=== PATIENT | female | born 1965 | race Caucasian/White ===

== ENCOUNTER 2025-01-11 01:00 | Observation (INO) ==
--- NOTE | 2025-01-11 01:17 | Emergency Department Note ---
History of Present Illness General Chief complaint: Abdominal Pain Stated complaint: ABD PAIN IN R SIDE, VOMITING Time Seen by Provider: 01/11/25 01:04 History of Present Illness Maximum Pain Intensity: 4 This 59-year-old female presents ER complaining of nausea vomiting diarrhea and right lower quadrant pain. Patient is concerned about her appendix. She is also on well water. No recent antibiotics. Patient states she had 2 hotdogs a chili sauce for dinner. Other family members have the same thing and are fine. Patient denies chest pain, dyspnea, fevers, flank pain, urinary symptoms. No abdominal surgeries. No colonoscopy. No blood or black in the stool. Past Med/Surg History Problem List (Updated 01/11/25 @ 02:44 by Lesly Mcnulty PA-C) Ureterolithiasis (Acute) Renal colic on right side (Acute) Social History Smoking Status: Never smoker Preferred Language: Citizen Of The [place] Feels Safe at Home: Yes Review of Systems A total of 10 systems reviewed and were otherwise negative Physical Exam Vital Signs Vital Signs - 24 hr 01/11/25 01:06 01/11/25 01:19 01/11/25 01:28 Temperature 36.5 C Temperature Source Temporal Artery Scan Pulse Rate 87 69 Pulse Rate [Apical] 77 Pulse Rhythm [Apical] Regular Pulse Strength [Apical] Normal Respiratory Rate 18 20 Respiratory Effort / Characteristics Non-Labored Spontaneous Non-Labored Spontaneous Respiratory Depth Normal Normal Respiratory Pattern Regular Regular Blood Pressure 139/69 Blood Pressure [Right Arm] 136/82 Blood Pressure Mean 92 Blood Pressure Mean [Right Arm] 100 Blood Pressure Position Sitting Pulse Oximetry 99 98 Oxygen Delivery Method Room Air Room Air Sepsis Recent Fever Within 48 Hours No Sepsis New/Unexplained Change in Mental Status N/A Sepsis Action Taken by Nursing No Action Required VITALS: Vitals are noted on the nurse's note and reviewed by myself. Vital signs stable. GENERAL: Pleasant patient with family present, in no acute distress, nondiaphoretic, well-developed well-nourished. SKIN: Capillary reflex less than 2 seconds. HEENT: Normocephalic. PERRLA. EOMI. Nares patent. Mucous membranes moist. Neck is supple without nuchal rigidity. HEART: Regular rate and rhythm LUNGS: Clear to auscultation bilaterally without wheezes, rales or rhonchi. No retractions or accessory muscle use. ABDOMEN: Positive bowel sounds x 4. Normal tympanic percussion. Soft, tender to palpation lower abdomen, without masses or organomegaly. Menjivar sign negative. No guarding or rebound tenderness. no CVA tenderness MUSCULOSKELETAL: No gross musculoskeletal defects. NEURO: Patient was alert and oriented to person place and time. No focal neurological deficits. Course Administered Medications Discontinued Medications Dicyclomine HCl (Dicyclomine Hcl 10 Mg/Ml 2 Ml Amp/Vial) 20 mg IM NOW ONE Stop: 01/11/25 01:15 Last Admin: 01/11/25 01:22 Dose: 20 mg Documented By: SHARIFA Sodium Chloride (Nss) 1,000 mls @ 999 mls/hr IV .Q1H1M STA Stop: 01/11/25 02:14 Last Admin: 01/11/25 01:22 Dose: 999 mls/hr Documented By: SHARIFA Famotidine (Pepcid 20mg Iv Push) 20 mg in 5 mls @ 2.5 mls/min IV NOW STA Stop: 01/11/25 01:15 Last Admin: 01/11/25 01:22 Dose: 2.5 mls/min Documented By: SHARIFA Ioversol (Optiray 320 100ml) 94 ml IV ONCE ONE Stop: 01/11/25 01:40 Last Admin: 01/11/25 01:44 Dose: 94 ml Documented By: AISHA Ondansetron HCl (Ondansetron Inj 2 Mg/Ml 2 Ml Vial) 4 mg IV NOW STA Stop: 01/11/25 01:15 Last Admin: 01/11/25 01:22 Dose: 4 mg Documented By: SHARIFA Medical Decision Making Medical Records Attestation: I reviewed the patient's medical records. Home Medications Current Medication List: was personally reviewed by me Laboratory Data Attestation: I reviewed the patient's lab results. 01/11/25 01:14 01/11/25 01:14 Lab Results 01/11/25 01/11/25 01/11/25 Range/Units 01:14 01:19 02:00 WBC 18.92 H (4.8-10.8) K/ul RBC 4.73 (4.20-5.40) M/uL Hgb 14.2 (12.0-16.0) g/dl POC Hgb 14.3 (12.0-16.0) g/dl Hct 41.4 (37.0-47.0) % POC Hct 42 (37-47) % MCV 87.5 (80.0-100.0) fL MCH 30.0 (25.0-34.0) pg MCHC 34.3 (32.0-36.0) g/dL RDW Std Deviation 38.5 (36.4-46.3) fL RDW Coeff of Ilya 12.0 (11.5-14.5) % Plt Count 308 (130-400) K/uL MPV 9.5 (9.4-12.4) fL Immature Gran % (Auto) 0.5 % Neut % (Auto) 87.4 % Lymph % (Auto) 7.7 % [place] % (Auto) 3.4 % Eos % (Auto) 0.6 % Baso % (Auto) 0.4 % Neut # (Auto) 16.54 H (1.40-6.50) K/uL Lymph # (Auto) 1.46 (1.20-3.40) K/uL [place] # (Auto) 0.65 H (0.11-0.59) K/uL Eos # (Auto) 0.11 (0.00-0.50) K/uL Baso # (Auto) 0.07 (0.00-0.20) K/uL Immature Gran # (Auto) 0.09 (0.01-0.20) K/uL POC Sodium 141 (135-144) mmol/L Sodium 139 (136-145) mmol/L POC Potassium 3.6 (3.3-5.0) mmol/L Potassium 3.6 (3.5-5.1) mmol/L POC Chloride 110 (101-112) mmol/L Chloride 108 H (98-107) mmol/L Carbon Dioxide 24 (21-32) mmol/L POC Total CO2 22 L (24-31) mmol/L Anion Gap 7 (3-11) POC Anion Gap 13.0 L (16-25) mmol/L POC BUN 22 H (7-18) mg/dl BUN 22 (6-23) mg/dl Creatinine 0.86 (0.6-1.2) mg/dl POC Creatinine 0.9 (0.6-1.3) mg/dl Est Cr Clr Drug Dosing 57.1 ml/min eGFR 78.75 BUN/Creatinine Ratio 25.6 H (10-20) Glucose 176 H (70-99(Fasting)) mg/dl POC Glucose (other) 177 H (70-99) mg/dl Calcium 9.6 (8.6-10.3) mg/dl POC Ioniz Calcium Darian 1.23 (1.12-1.32) mmol/l Total Bilirubin 0.4 (0.2-1.0) mg/dl AST 20 (13-39) U/L ALT 15 (7-52) U/L Alkaline Phosphatase 73 (34-104) U/L Total Protein 7.5 (6.0-8.3) gm/dl Albumin 4.6 (3.4-5.0) gm/dl Globulin 2.9 (2.5-4.0) gm/dl Albumin/Globulin Ratio 1.6 (0.9-2) Lipase 38 (11-82) U/L Urine Color Yellow Urine Appearance Clear (Clear) Urine pH 7.0 (4.5-7.5) Ur Specific [place] 1.040 H (1.000-1.030) Urine Protein Negative (Negative) Urine Glucose (UA) Negative (Negative) Urine Ketones Trace H (Negative) Urine Blood Negative (Negative) Urine Nitrite Negative (Negative) Urine Bilirubin Negative (Negative) Urine Urobilinogen Negative (Negative) Ur Leukocyte Esterase Trace H (Negative) Urine WBC (Auto) 0-5 (0-5) /hpf Urine RBC (Auto) 0-2 (0-2) /hpf U Hyaline Cast (Auto) 0-2 (0-2) /lpf U Epithel Cells (Auto) 0-2 (0-2) /hpf Urine Bacteria (Auto) None Seen (None Seen) Urine Comment Imaging Data Attestation: I personally reviewed and interpreted this imaging study as follows: Radiologist's Impression: Abdomen/Pelvis CT 01/11/25 01:14 EXAM: CT abd pelvis IV con only CLINICAL HISTORY: severe RLQ pain TECHNIQUE: Contiguous axial images were obtained from the level of the diaphragm to the pubic symphysis with intravenous contrast. Coronal and sagittal reconstructions were also performed and indicated to increase the sensitivity for detecting clinically relevant pathology. If IV contrast material had not been administered, the likelihood of detecting abnormalities relevant to the patient's condition would have been substantially decreased. The CT scan was performed according to ALARA (as low as reasonably achievable). COMPARISON: None FINDINGS: The visualized lung bases are clear. The liver is normal in size and attenuation. No focal liver lesions are seen. There is no intrahepatic or extrahepatic biliary ductal dilatation. The hepatic vasculature is patent. The gallbladder is present. The spleen, pancreas, and adrenal glands are unremarkable. The kidneys are normal in size and attenuation. The right kidney shows hydronephrosis and hydroureter up to an obstructing calculus measuring 10 mm at the right vesicoureteric junction. The right kidney shows a nonobstructing calculus measuring 3 mm in the lower calyx. Mild stricturous inflammatory wall thickening is noted involving the right proximal ureter, just distal to the pelviureteric junction, with mild adjacent fat stranding. The bladder is normal in contour. The pelvic viscera are unremarkable. No focal or diffuse bowel wall thickening or evidence of bowel obstruction is identified. There is no imaging evidence of appendicitis. The abdominal and pelvic vasculature is patent. No adenopathy or fluid collections are seen. No aggressive-appearing osseous lesions are identified. IMPRESSION: The right kidney shows hydronephrosis and hydroureter up to an obstructing calculus measuring 10 mm at the right vesicoureteric junction. The right kidney shows a nonobstructing calculus measuring 3 mm in the lower calyx. Mild stricturous inflammatory wall thickening is noted involving the right proximal ureter, just distal to the pelviureteric junction, with mild adjacent fat stranding. Electronically signed by Mega Nielsen 01-11-2025 02:35 AM MDM Narrative Prior records/ancillary studies reviewed. Triage Nursing notes reviewed. Additional history obtained from the family. The patient's history was concerning for nausea, vomiting, diarrhea, and abdominal pain. Differential diagnosis: Etiologies such as gastroenteritis, food borne illness, infections, appendicitis, diverticulitis, inflammatory bowel disease, obstruction, GI bleed, biliary pathology, as well as others were entertained. Physical examination findings: As above. Abdominal examination revealed tender right lower quadrant. Vital signs reviewed and revealed stable. ER treatment provided: IV hydration 1 L NSS. Zofran, Pepcid and Bentyl were ordered Flomax was ordered for large kidney stone On reassessment the patient felt better. Patient was tolerating p.o. intake. Diagnostics interpretation by me: The labs Independently Interpreted by myself revealed leukocytosis, hyperglycemia that DKA. Negative urine for infection Imaging studies: Imaging was reviewed and read by radiology Consultation: A consultation was placed with the hospitalist. The case was discussed and diagnostics were reviewed. The patient was evaluated in the ER for further treatment. This appears to be consistent with right renal colic with ureterolithiasis. Patient stone was rather large most likely will not pass on its own. Medicine was consulted and the case was discussed. She will be evaluated for admission. No UTI. No history of diabetes. A1c was ordered as the glucose was elevated. No DKA.. By the evaluation outlined above emergent etiologies such as appendicitis, diverticulitis, obstruction, cardiac sources, mesenteric ischemia, aortic pathology, inflammatory bowel disease, PUD, biliary pathology, UTI, as well as others were deemed relatively unlikely. The pt informed about the findings as listed above. All questions were answered and pleased with the treatment. The chart was completed utilizing [employer] Speech voice recognition software. Grammatical errors, random word insertions, pronoun errors, and incomplete sentences are an occassional consequence of this system due to software limitations, ambient noise, and hardware issues. Any formal questions or concerns about the content, text, or information contained within the body of this dictation should be directly addressed to the physician assistant public defender for clarification. Impression & Plan Renal colic on right side, Ureterolithiasis Discharge Plan Visit Data Chief Complaint: Abdominal Pain Stated Complaint: ABD PAIN IN R SIDE, VOMITING ED Provider: Rita Carver ED Midlevel Provider: Lesly Mcnulty Discharge Problem: Renal colic on right side, Ureterolithiasis Patient Disposition: Admitted As Inpatient Condition: Good Forms Stand Alone Forms: [facility] Referrals Referrals: Homero Suresh MD [Primary Care Provider] -
[2025-01-11] MEDS: ONDANSETRON INJ 2 MG/ML 2 ML VIAL IV STA (01:22)
[2025-01-11] MEDS: SODIUM CHLORIDE 0.9% 1,000 ML IV STA (01:22)
[2025-01-11] MEDS: FAMOTIDINE 20MG IV PUSH 20 MG/5 ML SYR IV STA (01:22)
[2025-01-11] MEDS: DICYCLOMINE HCL 10 MG/ML 2 ML AMP/VIAL IM ONE (01:22)
[2025-01-11 01:34] LABS: Hematocrit (blood only) 41.4 % (37.0-47.0); Hemoglobin 14.2 g/dl (12.0-16.0); Immature Granulocytes # (auto) 0.09 K/uL (0.01-0.20); Immature Granulocytes % (auto) 0.5 %; Mean Corpuscular Hemoglobin 30.0 pg (25.0-34.0); Mean Corpuscular Volume 87.5 fL (80.0-100.0); Platelet Count 308 K/uL (130-400); RDW Standard Deviation 38.5 fL (36.4-46.3); Red Blood Count 4.73 M/uL (4.20-5.40); White Blood Count 18.92 K/ul (4.8-10.8)
[2025-01-11] MEDS: OPTIRAY 320 100ml IV ONE (01:44)
[2025-01-11 01:52] LABS: Alanine Aminotransferase 15.0 U/L (7-52); Albumin Globulin Ratio 1.6 (0.9-2); Albumin Level 4.6 gm/dl (3.4-5.0); Alkaline Phosphatase 73.0 U/L (34-104); Anion Gap 7.0 (3-11); Bilirubin,Total 0.4 mg/dl (0.2-1.0); Blood Urea Nitrogen 22.0 mg/dl (6-23); Calcium 9.6 mg/dl (8.6-10.3); Carbon Dioxide 24.0 mmol/L (21-32); Chloride 108.0 mmol/L (98-107); Creatinine Clr Calc Pharmacy 57.1 ml/min; Globulin 2.9 gm/dl (2.5-4.0); Glucose 176.0 mg/dl (70-99(Fasting)); Lipase 38.0 U/L (11-82); Potassium 3.6 mmol/L (3.5-5.1); Sodium 139.0 mmol/L (136-145); Total Protein 7.5 gm/dl (6.0-8.3)
[2025-01-11 02:15] LABS: Appearance Urine Clear (Clear); Bacteria Urine Automated None Seen (None Seen); Cast Urine Automated 0-2 /lpf (0-2); Epithelial Cell Urine Auto 0-2 /hpf (0-2); Glucose Urine UA Negative (Negative); RBC Urine Automated 0-2 /hpf (0-2); WBC Urine Automated 0-5 /hpf (0-5)
--- NOTE | 2025-01-11 02:35 | CT Scan Report ---
EXAM: CT abd pelvis IV con only CLINICAL HISTORY: severe RLQ pain TECHNIQUE: Contiguous axial images were obtained from the level of the diaphragm to the pubic symphysis with intravenous contrast. Coronal and sagittal reconstructions were also performed and indicated to increase the sensitivity for detecting clinically relevant pathology. If IV contrast material had not been administered, the likelihood of detecting abnormalities relevant to the patient's condition would have been substantially decreased. The CT scan was performed according to ALARA (as low as reasonably achievable). COMPARISON: None FINDINGS: The visualized lung bases are clear. The liver is normal in size and attenuation. No focal liver lesions are seen. There is no intrahepatic or extrahepatic biliary ductal dilatation. The hepatic vasculature is patent. The gallbladder is present. The spleen, pancreas, and adrenal glands are unremarkable. The kidneys are normal in size and attenuation. The right kidney shows hydronephrosis and hydroureter up to an obstructing calculus measuring 10 mm at the right vesicoureteric junction. The right kidney shows a nonobstructing calculus measuring 3 mm in the lower calyx. Mild stricturous inflammatory wall thickening is noted involving the right proximal ureter, just distal to the pelviureteric junction, with mild adjacent fat stranding. The bladder is normal in contour. The pelvic viscera are unremarkable. No focal or diffuse bowel wall thickening or evidence of bowel obstruction is identified. There is no imaging evidence of appendicitis. The abdominal and pelvic vasculature is patent. No adenopathy or fluid collections are seen. No aggressive-appearing osseous lesions are identified. IMPRESSION: The right kidney shows hydronephrosis and hydroureter up to an obstructing calculus measuring 10 mm at the right vesicoureteric junction. The right kidney shows a nonobstructing calculus measuring 3 mm in the lower calyx. Mild stricturous inflammatory wall thickening is noted involving the right proximal ureter, just distal to the pelviureteric junction, with mild adjacent fat stranding. Electronically signed by Mega Nielsen 01-11-2025 02:35 AM
--- NOTE | 2025-01-11 02:53 | History & Physical Report ---
Date of Service January 11, 2025 Assessment & Plan (1) Ureterolithiasis: Plan: Assessment and plan below following discussion of case with ED provider and reviewing patient history/pertinent normal/abnormal diagnostic test results. Obstructive uropathy right secondary to ureterolithiasis No sepsis for now bronchial asthma, not in exacerbation Diarrhea rule out infectious causes Hyperglycemia rule out DM Admit to MedSurg Analgesia Strain urine Urology consult re: obstructive kidney stone N.p.o. in anticipation of procedure Stool cultures, stool C. difficile Check hemoglobin A1c DVT prophylaxis. SCDs re: possible procedure Full code Text document was generated using [employer] voice recognition software. It may contain grammatical or spelling errors. Kindly contact undersigned for clarification of any documentation item in question. History of Present Illness Chief Complaint: RLQ pain Primary Care Provider: Homero Suresh MD History obtained from patient and records. Medical history significant bronchial asthma, non-allergic rhinitis as per records, urolithiasis. Patient experienced achy RLQ pain associated with nausea, vomiting and watery diarrhea symptoms last night. Denies chest pain, SOB. Cough symptoms from allergies as per patient. No hematuria, no fever, no chills. No recent antibiotics/out-of-town travel. Not sure about sick contacts. Medical History as above Surgical History : section, BTL, laparoscopic hysterectomy, knee surgeries, bunionectomy, umbilical hernia repair Family History : DM, asthma, heart disease Personal/Social history : Non-smoker, no EtOH intake, [employer] employee Allergies Allergy/AdvReac Type Severity Reaction Status Date / Time azithromycin Allergy Hives Verified 01/11/25 03:00 codeine Allergy Rash Verified 01/11/25 03:00 Penicillins Allergy Anaphylaxis Verified 01/11/25 03:00 Sulfa (Sulfonamide Allergy Rash Verified 01/11/25 03:00 Antibiotics) Home Medications Medication Instructions Recorded Confirmed Type albuterol sulfate 90 mcg/actuation 2 puff inhalation QID PRN Wheezing 01/11/25 01/11/25 History aerosol inhaler azelastine 137 mcg (0.1 %) nasal 2 spray intranasal BID 01/11/25 01/11/25 History spray fluticasone furoate 27.5 1 spray intranasal BID PRN Nasal 01/11/25 01/11/25 History mcg/actuation nasal Congestion spray,suspension guaifenesin 600 mg tablet, 600 mg PO Q12H PRN Nasal Congestion 01/11/25 01/11/25 History extended release 12 hr pseudoephedrine-guaifenesin ER 120 1 tab PO Q12H PRN Nasal Congestion 01/11/25 01/11/25 History mg-1,200 mg tab,extend release 12hr (Mucinex D Maximum Strength) Past Med/Surg History Problem List (Updated 01/11/25 @ 02:44 by Lesly Mcnulty PA-C) Ureterolithiasis (Acute) Renal colic on right side (Acute) Social History Smoking Status: Never smoker Hx Alcohol Use: No Hx Substance Use: No Preferred Language: Uzbek Communication Ability: Effective Financial Services Assistant Required: No Beliefs That Will Affect Care: None Current Living Situation: Spouse Other Information That Helps Us Care for You: No Feels Safe at Home: Yes Safety Concerns: Feels Safe At This Time Assistive Devices: Glasses Review of Systems Review of Systems: As per HPI, all other systems reviewed and negative Physical Exam Physical Exam: GENERAL: Comfortable, pleasant, no respiratory distress SKIN: Normal color, warm HEENT: Bespectacled, pink palpebral conjunctivae, no ptosis, dry buccal mucosa NECK : Supple, no tenderness CHEST : CTA, no tenderness HEART : RRR, no obvious murmurs ABDOMEN: Some distention, RLQ tenderness EXTREMITIES : No LE swelling/tenderness, palpable pulses, no other conspicuous deformities noted NEUROLOGIC : Coherent, no facial asymmetry, no other gross focality Results & Data Results & Data Vital Signs (Past 12 Hours) Vital Signs Temp Pulse Pulse Resp BP BP Pulse Ox 01/11/25 01:28 69 01/11/25 01:19 77 20 136/82 98 01/11/25 01:06 36.5 C 87 18 139/69 99 O2 Del Method 01/11/25 01:28 01/11/25 01:19 Room Air 01/11/25 01:06 Room Air Laboratory Results Laboratory Results WBC 18.92 K/ul (4.8-10.8) H 01/11/25 01:14 RBC 4.73 M/uL (4.20-5.40) 01/11/25 01:14 Hgb 14.2 g/dl (12.0-16.0) 01/11/25 01:14 POC Hgb 14.3 g/dl (12.0-16.0) 01/11/25 01:19 Hct 41.4 % (37.0-47.0) 01/11/25 01:14 POC Hct 42 % (37-47) 01/11/25 01:19 MCV 87.5 fL (80.0-100.0) 01/11/25 01:14 MCH 30.0 pg (25.0-34.0) 01/11/25 01:14 MCHC 34.3 g/dL (32.0-36.0) 01/11/25 01:14 RDW Std Deviation 38.5 fL (36.4-46.3) 01/11/25 01:14 RDW Coeff of Ilya 12.0 % (11.5-14.5) 01/11/25 01:14 Plt Count 308 K/uL (130-400) 01/11/25 01:14 MPV 9.5 fL (9.4-12.4) 01/11/25 01:14 Immature Gran % (Auto) 0.5 % 01/11/25 01:14 Neut % (Auto) 87.4 % 01/11/25 01:14 Lymph % (Auto) 7.7 % 01/11/25 01:14 [place] % (Auto) 3.4 % 01/11/25 01:14 Eos % (Auto) 0.6 % 01/11/25 01:14 Baso % (Auto) 0.4 % 01/11/25 01:14 Neut # (Auto) 16.54 K/uL (1.40-6.50) H 01/11/25 01:14 Lymph # (Auto) 1.46 K/uL (1.20-3.40) 01/11/25 01:14 [place] # (Auto) 0.65 K/uL (0.11-0.59) H 01/11/25 01:14 Eos # (Auto) 0.11 K/uL (0.00-0.50) 01/11/25 01:14 Baso # (Auto) 0.07 K/uL (0.00-0.20) 01/11/25 01:14 Immature Gran # (Auto) 0.09 K/uL (0.01-0.20) 01/11/25 01:14 POC Sodium 141 mmol/L (135-144) 01/11/25 01:19 Sodium 139 mmol/L (136-145) 01/11/25 01:14 POC Potassium 3.6 mmol/L (3.3-5.0) 01/11/25 01:19 Potassium 3.6 mmol/L (3.5-5.1) 01/11/25 01:14 POC Chloride 110 mmol/L (101-112) 01/11/25 01:19 Chloride 108 mmol/L (98-107) H 01/11/25 01:14 Carbon Dioxide 24 mmol/L (21-32) 01/11/25 01:14 POC Total CO2 22 mmol/L (24-31) L 01/11/25 01:19 Anion Gap 7 (3-11) 01/11/25 01:14 POC Anion Gap 13.0 mmol/L (16-25) L 01/11/25 01:19 POC BUN 22 mg/dl (7-18) H 01/11/25 01:19 BUN 22 mg/dl (6-23) 01/11/25 01:14 Creatinine 0.86 mg/dl (0.6-1.2) 01/11/25 01:14 POC Creatinine 0.9 mg/dl (0.6-1.3) 01/11/25 01:19 Est Cr Clr Drug Dosing 57.1 ml/min 01/11/25 01:14 eGFR 78.75 01/11/25 01:14 BUN/Creatinine Ratio 25.6 (10-20) H 01/11/25 01:14 Glucose 176 mg/dl (70-99(Fasting)) H 01/11/25 01:14 POC Glucose (other) 177 mg/dl (70-99) H 01/11/25 01:19 Calcium 9.6 mg/dl (8.6-10.3) 01/11/25 01:14 POC Ioniz Calcium [place] 1.23 mmol/l (1.12-1.32) 01/11/25 01:19 Total Bilirubin 0.4 mg/dl (0.2-1.0) 01/11/25 01:14 AST 20 U/L (13-39) 01/11/25 01:14 ALT 15 U/L (7-52) 01/11/25 01:14 Alkaline Phosphatase 73 U/L (34-104) 01/11/25 01:14 Total Protein 7.5 gm/dl (6.0-8.3) 01/11/25 01:14 Albumin 4.6 gm/dl (3.4-5.0) 01/11/25 01:14 Globulin 2.9 gm/dl (2.5-4.0) 01/11/25 01:14 Albumin/Globulin Ratio 1.6 (0.9-2) 01/11/25 01:14 Lipase 38 U/L (11-82) 01/11/25 01:14 Urine Color Yellow 01/11/25 02:00 Urine Appearance Clear (Clear) 01/11/25 02:00 Urine pH 7.0 (4.5-7.5) 01/11/25 02:00 Ur Specific [place] 1.040 (1.000-1.030) H 01/11/25 02:00 Urine Protein Negative (Negative) 01/11/25 02:00 Urine Glucose (UA) Negative (Negative) 01/11/25 02:00 Urine Ketones Trace (Negative) H 01/11/25 02:00 Urine Blood Negative (Negative) 01/11/25 02:00 Urine Nitrite Negative (Negative) 01/11/25 02:00 Urine Bilirubin Negative (Negative) 01/11/25 02:00 Urine Urobilinogen Negative (Negative) 01/11/25 02:00 Ur Leukocyte Esterase Trace (Negative) H 01/11/25 02:00 Urine WBC (Auto) 0-5 /hpf (0-5) 01/11/25 02:00 Urine RBC (Auto) 0-2 /hpf (0-2) 01/11/25 02:00 U Hyaline Cast (Auto) 0-2 /lpf (0-2) 01/11/25 02:00 U Epithel Cells (Auto) 0-2 /hpf (0-2) 01/11/25 02:00 Urine Bacteria (Auto) None Seen (None Seen) 01/11/25 02:00 Urine Comment 01/11/25 02:00 Impressions Abdomen/Pelvis CT 01/11/25 01:14 EXAM: CT abd pelvis IV con only CLINICAL HISTORY: severe RLQ pain TECHNIQUE: Contiguous axial images were obtained from the level of the diaphragm to the pubic symphysis with intravenous contrast. Coronal and sagittal reconstructions were also performed and indicated to increase the sensitivity for detecting clinically relevant pathology. If IV contrast material had not been administered, the likelihood of detecting abnormalities relevant to the patient's condition would have been substantially decreased. The CT scan was performed according to ALARA (as low as reasonably achievable). COMPARISON: None FINDINGS: The visualized lung bases are clear. The liver is normal in size and attenuation. No focal liver lesions are seen. There is no intrahepatic or extrahepatic biliary ductal dilatation. The hepatic vasculature is patent. The gallbladder is present. The spleen, pancreas, and adrenal glands are unremarkable. The kidneys are normal in size and attenuation. The right kidney shows hydronephrosis and hydroureter up to an obstructing calculus measuring 10 mm at the right vesicoureteric junction. The right kidney shows a nonobstructing calculus measuring 3 mm in the lower calyx. Mild stricturous inflammatory wall thickening is noted involving the right proximal ureter, just distal to the pelviureteric junction, with mild adjacent fat stranding. The bladder is normal in contour. The pelvic viscera are unremarkable. No focal or diffuse bowel wall thickening or evidence of bowel obstruction is identified. There is no imaging evidence of appendicitis. The abdominal and pelvic vasculature is patent. No adenopathy or fluid collections are seen. No aggressive-appearing osseous lesions are identified. IMPRESSION: The right kidney shows hydronephrosis and hydroureter up to an obstructing calculus measuring 10 mm at the right vesicoureteric junction. The right kidney shows a nonobstructing calculus measuring 3 mm in the lower calyx. Mild stricturous inflammatory wall thickening is noted involving the right proximal ureter, just distal to the pelviureteric junction, with mild adjacent fat stranding. Electronically signed by Mega Nielsen 01-11-2025 02:35 AM
[2025-01-11] MEDS ORDERED: ACETAMINOPHEN 325 MG TAB PO PRN (02:54)
[2025-01-11] MEDS ORDERED: MoRPHine SULFATE 4 MG/ML 1 ML CARP\\VIAL IV PRN (02:54)
[2025-01-11] MEDS ORDERED: PROMETHAZINE 6.25 MG/50.25 ML BAG IV PRN (02:54)
[2025-01-11] MEDS ORDERED: LORazepam 0.5 MG TAB PO PRN (02:54)
[2025-01-11] MEDS: TAMSULOSIN HCL 0.4 MG CAP PO ONE (03:03)
[2025-01-11] MEDS ORDERED: ALBUT/IPRATROP 3MG/0.5MG NEB 3 ML VIAL NEB PRN (03:20)
[2025-01-11] MEDS ORDERED: FLUTICASONE PROPIONATE NA SPR 16 GM BTL NAE PRN (03:23)
[2025-01-11] MEDS: SODIUM CHLORIDE 0.9% 1,000 ML IV ONE (03:40)
[2025-01-11 08:07] LABS: Hemoglobin A1C 5.6 % (4.5-5.6)
[2025-01-11] MEDS: AZELASTINE HCL 0.1% NASAL 200 SPRAYS/27,400 MCG BTL SCH (08:30)
--- NOTE | 2025-01-11 08:46 | Urology Consultation ---
Date of Consultation January 11, 2025 Assessment & Plan (1) Ureterolithiasis: (2) Renal colic on right side: 59-year-old female admitted for right renal colic secondary to an obstructing 10 mm right UVJ stone with hydroureteronephrosis. Patient afebrile and hemodynamically stable Labs on arrival reviewedcreatinine 0.86, WBC 18.92, hemoglobin 14.2 Urinalysis was not suspicious for infection CT abdomen and pelvis reviewedobstructing 10 mm right UVJ stone with hydroureteronephrosis, additional nonobstructing right renal calculus Discussed options for stone management including observation versus surgical intervention today with ureteroscopy, laser lithotripsy and stent placement We discussed that her stone is less likely to pass spontaneously given size at 10 mm Ureteral stents were discussed in detail After discussion, she would like to proceed with surgical intervention today Proceed to OR for Cystoscopy, retrograde pyelogram, right ureteroscopy, laser lithotripsy, stone basketing, possible ureteral dilation and right ureteral stent placement Risks and benefits of procedure to be reviewed with patient by Dr. Jaswant Finley n.p.o. for procedure Will cover with IV antibiotics preoperatively Continue supportive care and medical management per hospital medicine service Plan Attending note: Patient independently assessed, examined, interviewed, and evaluated. Agree with note as above. Patient's vitals and labs were all reviewed. P ertinent values in the HPI and plan section. Imaging was reviewed interpreted by myself. Agree with read. Vitals were reviewed. Discussed findings extensively with patient and family. Reviewed with nurse practitioner as well as consulting physicians/team. Patient's blood work shows a white count elevated to 18.92. Had creatinine at 0.86. Does have a large obstructing stone in the kidney. Does appear to be causing some hydronephrosis. Stone does appear to have caused inflammation during its travel down the ureter. Otherwise agree with read. Hemoglobin was 14.2. Patient's complicated medical and surgical history was reviewed and summarized above. Patient's surgical, medical, social, and family history were all reviewed with pertinent values as above. Discussed patient's current diagnosis as well as concerns and issues. Reviewed different options moving forward. Discussed potential risks and benefits as well as possible options and concerns. Reviewed potential surgical options and interventions. Discussed potential issues and concerns related to intervention. Risk and benefits were discussed extensively with patient and any available family. Discussed potential risks related to anesthesia. Discussed risks of bleeding infection and injury. Discussed options for conservative measure and maximum expulsion medical therapy and symptom controlled. Discussed ESWL. Discussed Ureteroscopy with extraction and/or laser lithotripsy. Risks and benefits were discussed. Stone free rates were also discussed as well as possibility of multiple procedures. Ureteral stents were discussed as well as post-operative issues and pain management. All questions were answered. Risks and benefits discussed at length for procedure. These include bleeding, infection, injury to surrounding tissues or organs, and risks associated with anesthesia. Patient states understanding and agrees to proceed. Will sign consent and procee d. Plan for Right Ureteroscopy and stone treatment. History of Present Illness Reason for Consultation: ureterolithiasis Attending Physician: Néstor Davies DO History of Present Illness This is a 59-year-old female with history of nephrolithiasis who presented to the emergency department today for evaluation of right lower quadrant pain, nausea, vomiting and diarrhea. On arrival to ED, she was afebrile and hemodyna mically stable. Lab work showed WBC 18.92, hemoglobin 14.2, creatinine 0.86. Urinalysis showed trace ketones, trace LE, otherwise unremarkable. Workup included CT abdomen and pelvis with IV contrast which demonstrated an obstructing 10 mm right UVJ stone with resulting right hydronephrosis and hydroureter; additional nonobstructing right renal calculus. ED course: IV fluids, ondansetron, dicyclomine, and famotidine. She was admitted to the hospital medicine service for ureterolithiasis. Urology is consulted regarding ureterolithiasis. Patient seen and examined at bedside this morning. She is awake and resting comfortably in bed. She denies pain at present. No nausea or vomiting. She is voiding without difficulty. No dysuria or hematuria. She is currently NPO. She has a history of kidney stone in the past, many years ago. Allergies Allergy/AdvReac Type Severity Reaction Status Date / Time azithromycin Allergy Hives Verified 01/11/25 03:00 codeine Allergy Rash Verified 01/11/25 03:00 Penicillins Allergy Anaphylaxis Verified 01/11/25 03:00 Sulfa (Sulfonamide Allergy Rash Verified 01/11/25 03:00 Antibiotics) Home Medications Medication Instructions Recorded Confirmed Type albuterol sulfate 90 mcg/actuation 2 puff inhalation QID PRN Wheezing 01/11/25 01/11/25 History aerosol inhaler azelastine 137 mcg (0.1 %) nasal 2 spray intranasal BID 01/11/25 01/11/25 History spray fluticasone furoate 27.5 1 spray intranasal BID PRN Nasal 01/11/25 01/11/25 History mcg/actuation nasal Congestion spray,suspension guaifenesin 600 mg tablet, 600 mg PO Q12H PRN Nasal Congestion 01/11/25 01/11/25 History extended release 12 hr pseudoephedrine-guaifenesin ER 120 1 tab PO Q12H PRN Nasal Congestion 01/11/25 01/11/25 History mg-1,200 mg tab,extend release 12hr (Mucinex D Maximum Strength) Patient History Social History Smoking Status: Never smoker Hx Alcohol Use: No Hx Substance Use: No Preferred Language: Belgian Communication Ability: Effective Chemical Lab Supervisor Required: No Beliefs That Will Affect Care: None Current Living Situation: Spouse Other Information That Helps Us Care for You: No Feels Safe at Home: Yes Safety Concerns: Feels Safe At This Time Assistive Devices: Glasses Review of Systems Review of Systems: All systems reviewed & are unremarkable except as noted in HPI & below Physical Exam Constitutional: well developed and well nourished; no acute distress Respiratory: normal respiratory effort; no respiratory distress and no labored breathing Gastrointestinal (Abdomen): Inspection/Auscultation: abdomen normal to inspection Musculoskeletal: Head/Neck/Chest: normocephalic Neurologic: moves all extremities and awake Psychiatric: Orientation: alert and oriented x 3 Results & Data Vital Signs (Past 12 Hours) Vital Signs Temp Pulse Pulse Pulse Resp BP BP 01/11/25 08:13 36.7 C 101 H 20 116/61 01/11/25 04:18 83 17 01/11/25 04:15 82 18 133/84 01/11/25 04:00 01/11/25 04:00 36.9 C 01/11/25 03:57 81 17 121/60 01/11/25 02:39 83 17 123/68 01/11/25 01:28 69 01/11/25 01:19 77 20 136/82 01/11/25 01:06 36.5 C 87 18 139/69 Pulse Ox O2 Del Method 01/11/25 08:13 97 Room Air 01/11/25 04:18 98 Room Air 01/11/25 04:15 98 01/11/25 04:00 Room Air 01/11/25 04:00 01/11/25 03:57 96 Room Air 01/11/25 02:39 98 01/11/25 01:28 01/11/25 01:19 98 Room Air 01/11/25 01:06 99 Room Air PG Care Time/CCT Total # of Minutes Spent Total Time Spent with Patient: Total time spent is greater than 50% in coordination of care (as documented) at patient's floor/unit and/or counseling patient: Coding Level of Care Code 80332 IN/OBS CONSULT LVL 5,80M Diagnoses Ureterolithiasis N20.1 Renal colic on right side N23
[2025-01-11] MEDS ORDERED: PROPOFOL IV EMULSION 10 MG/ML 20 ML VIAL IV ONE (13:18)
[2025-01-11] MEDS ORDERED: DEXAMETHASONE SOD INJ 4 MG/ML VIAL ONE (13:18)
[2025-01-11] MEDS ORDERED: ONDANSETRON INJ 2 MG/ML 2 ML VIAL ONE (13:18)
[2025-01-11] MEDS ORDERED: LIDOCAINE 2% 2 ML VIAL/AMP(20MG/ML) INFIL ONE (13:18)
[2025-01-11] MEDS ORDERED: MIDAZOLAM HCL 1 MG/ML 2ML VIAL ONE (13:23)
[2025-01-11] MEDS ORDERED: ATROPINE SULFATE 0.1 MG/ML 10ML SYR IV PRN (13:56)
[2025-01-11] MEDS ORDERED: PROMETHAZINE HCL 6.25 MG in SODIUM CHLORIDE 0.9% 50 ML IV PRN (13:56)
--- NOTE | 2025-01-11 13:56 | Anesthesiology Consultation ---
Date of Service January 11, 2025 Assessment & Plan (1) Encounter for pre-operative examination: Chart Review Chart Review: Acceptable Risk for Surgery History Surgery Operation Date: 01/11/25 13:00 Proposed Procedures p Cystoscopy Retrograde Pyelogram Ureteroscopy Laser Lithotripsy and Stent Placement - Right - Fredy Michaud, Height/Weight Height: 5 ft 2 in Weight: 55 kg Allergies Allergy/AdvReac Type Severity Reaction Status Date / Time azithromycin Allergy Hives Verified 01/11/25 03:00 codeine Allergy Rash Verified 01/11/25 03:00 Penicillins Allergy Anaphylaxis Verified 01/11/25 03:00 Sulfa (Sulfonamide Allergy Rash Verified 01/11/25 03:00 Antibiotics) Medications Home Medications Medication Instructions Recorded Confirmed Last Taken albuterol sulfate 90 mcg/actuation 2 puff inhalation QID PRN Wheezing 01/11/25 01/11/25 Unknown aerosol inhaler azelastine 137 mcg (0.1 %) nasal 2 spray intranasal BID 01/11/25 01/11/25 Unknown spray fluticasone furoate 27.5 1 spray intranasal BID PRN Nasal 01/11/25 01/11/25 Unknown mcg/actuation nasal Congestion spray,suspension guaifenesin 600 mg tablet, 600 mg PO Q12H PRN Nasal Congestion 01/11/25 01/11/25 Unknown extended release 12 hr pseudoephedrine-guaifenesin ER 120 1 tab PO Q12H PRN Nasal Congestion 01/11/25 01/11/25 Unknown mg-1,200 mg tab,extend release 12hr (Mucinex D Maximum Strength) Active Medications Generic Name Dose Route Start Last Admin Trade Name Freq PRN Reason Stop Dose Admin Azelastine HCl 2 sprays 01/11/25 09:00 01/11/25 08:30 Azelastine Hcl 0.1% Nasal 200 Sprays/27,400 Mcg Btl NA 02/10/25 08:59 2 sprays BID PAM Administration Sodium Chloride 1,000 mls @ 75 mls/hr 01/11/25 03:20 01/11/25 03:40 Nss IV 01/11/25 16:39 75 mls/hr .[id number] ONE Administration NPO Date Last Intake of Fluids: 01/11/25 Time Last Intake of Fluids: 01:00 Last Intake of Fluids Comment: sips with meds Date Last Intake of Solids: 01/10/25 Time Last Intake of Solids: 17:00 Past Medical History Medical History (Updated 01/11/25 @ 13:54 by Kyle Garcia MD) Ureterolithiasis Asthma Exercise induced Past Surgical History Surgical History (Updated 01/11/25 @ 13:54 by Kyle Garcia MD) Hx of total knee arthroplasty Bilateral Social History Smoking Status: Never smoker Hx Alcohol Use: No Hx Substance Use: No substance use type: does not use Physical Exam Vital Signs Last Vital Signs Temp 36.8 C 01/11/25 13:40 Pulse 86 01/11/25 13:40 Resp 18 01/11/25 13:40 BP 145/75 H 01/11/25 13:40 Pulse Ox 97 01/11/25 13:40 O2 Del Method Room Air 01/11/25 13:40 Testing Laboratory Results 01/11/25 01:14 01/11/25 01:14 Hemoglobin A1c 5.6 % (4.5-5.6) 01/11/25 04:34 Urine Color Yellow 01/11/25 02:00 Urine Appearance Clear (Clear) 01/11/25 02:00 Urine pH 7.0 (4.5-7.5) 01/11/25 02:00 Ur Specific [place] 1.040 (1.000-1.030) H 01/11/25 02:00 Urine Protein Negative (Negative) 01/11/25 02:00 Urine Glucose (UA) Negative (Negative) 01/11/25 02:00 Urine Ketones Trace (Negative) H 01/11/25 02:00 Urine Nitrite Negative (Negative) 01/11/25 02:00 Ur Leukocyte Esterase Trace (Negative) H 01/11/25 02:00 Urine WBC (Auto) 0-5 /hpf (0-5) 01/11/25 02:00 Urine RBC (Auto) 0-2 /hpf (0-2) 01/11/25 02:00 U Hyaline Cast (Auto) 0-2 /lpf (0-2) 01/11/25 02:00 U Epithel Cells (Auto) 0-2 /hpf (0-2) 01/11/25 02:00 Urine Bacteria (Auto) None Seen (None Seen) 01/11/25 02:00
[2025-01-11] MEDS: CIPROFLOXACIN / D5W 400 MG/200 ML BAG IV SCH (14:05)
[2025-01-11] MEDS ORDERED: DROPERIDOL 5 MG/2 ML VIAL ONE (14:14)
[2025-01-11] MEDS: CIPROFLOXACIN 400MG / 200ML D5W IV ONE (14:24)
[2025-01-11] MEDS ORDERED: PHENYLEPHRINE 100MCG/ML 5ML SYR ONE (14:36)
[2025-01-11] MEDS ORDERED: ePHEDrine sulfate 50 MG/5 ML SYR ONE (14:36)
[2025-01-11] MEDS ORDERED: PHENYLEPHRINE HCL 10 MG/ML VIAL ONE (14:37)
[2025-01-11] MEDS: DIATRIZOATE MEGLUMINE 30% 100ML VIAL INSTIL ONE (14:52)
--- NOTE | 2025-01-11 14:55 | Operative Report ---
PG Post Operative Report Pre & Post Diagnosis Operation Date: 01/11/25 13:00 Pre-Op Diagnosis: Ureterolithiasis Post-Op Diagnosis: Ureterolithiasis I identified the patient and participated in the time-out.: Yes Procedure Operation Date: 01/11/25 13:00 Actual Procedures Cystoscopy with Right Retrograde Pyelogram, Ureteroscopy, Laser Lithotripsy, Basket Extraction of Stone, ureteral dilation, and Stent Placement - Right(Right) - Fredy Michaud, Surgeon Fredy Michaud, II, DO General Operations Manager None Estimated Blood Loss 1 Findings Consistent with Post-Op Diagnosis Right distal stone destroyed to dust and small fragments and larger fragments removed. Stricture/narrowing of the UPJ. This was dilated after dilation the scope was able advance but was extremely limited in mobility due to edematous changes found within the renal pelvis. Specimens Stone Fragments right ureter Drains 4.8 Palestinian by 26 double-J ureteral stent Anesthesia Type General Complications none Disposition Disposition: Recovery Room Indications Patient with bothersome stones. Risks and benefits discussed at length. Description of Procedure Patient was consented and brought back to the operating room. Patient was placed under anesthesia in the supine position and moved to the dorsal lithotomy position. Patient was prepped and draped in the regular sterile fashion. A time out was completed. A 30degree Cystoscope was placed into the bladder and the entire bladder was examined. The UO's were identified. The UO was cannulized with a catheter and a retrograde pyelogram was completed. A wire was then placed. The Rigid ureteroscope was taken into the ureter. The stone was identified. A laser fiber was selected and the stones were pulverized to dust and small fragments. Larger fragments were grasped and removed and sent for analysis. A second wire was then placed and the rigid scope removed. The flexible scope was then taken over the second wire and advanced to the UPJ. No further stone fragments were discovered in the ureter. The UPJ did appear to be severely narrowed with what appeared to be possible stricture additionally the kidney it did appear to be possibly slightly malrotated. There was significant hydronephrosis noted. The scope attempted to advance but had significant difficulty advancing. With significant manipulation and some mild dilation the area of narrowing was able to be open slightly and the scope was able to advance into the renal pelvis. However within the renal pelvis mobility was extremely limited. The renal calyx's were attempted to be examined. There was only limited visualization and due to the need for increasing manipulation it was decided to avoid any potential for injury by avoiding excess strain on the kidney. At this point it was decided to hold off on any further treatment of stone within the renal pelvis and leave a stent for decompression of the system. The degree of hydronephrosis may also been affecting the positioning of the kidney and contributing to the difficulty in mobility. The scope was slowly removed examining the proximal ureter and renal pelvis. No residual large fragments or areas of concern were noted. The scope was slowly removed with the wire left in place. Contrast was placed through the scope for a pyelogram to assist in stent placement. The entire ureter was examined as the scope was slowly removed. No obstructions or other areas of concern were noted. With the wire in place, a 4.8 Fr Double J stent was placed. It was confirmed with fluoroscopy. With the stent in place, the bladder was emptied. The scope was removed. The patient was cleaned, aroused from anesthesia, and transferred to the pacu in stable condition having tolerated the procedure well with no complications. I was present and participated in all aspects of the procedure. The patient will be monitored in the PACU until transferred. Plan to maintain stent for approximately 2 weeks. Will have patient return for follow-up and possible stent removal. I attest to the content of the Intraoperative Record and any orders documented therein. Any exceptions are noted below.
--- NOTE | 2025-01-11 15:16 | Anesthesiology Progress Note ---
Date of Service January 11, 2025 Anesthesia Post Procedure Vital Signs Vital Signs: Temp Pulse Pulse Pulse Resp BP BP 01/11/25 15:05 90 14 114/60 01/11/25 14:59 36.4 C L 96 H 20 123/62 01/11/25 13:40 36.8 C 86 18 145/75 H 01/11/25 11:41 36.5 C 83 16 125/73 01/11/25 08:13 36.7 C 101 H 20 116/61 01/11/25 08:00 01/11/25 04:18 83 17 01/11/25 04:15 82 18 133/84 01/11/25 04:00 01/11/25 04:00 36.9 C 01/11/25 03:57 81 17 121/60 01/11/25 02:39 83 17 123/68 01/11/25 01:28 69 01/11/25 01:19 77 20 136/82 01/11/25 01:06 36.5 C 87 18 139/69 Pulse Ox O2 Del Method O2 Flow Rate 01/11/25 15:05 100 Oxymask 6 01/11/25 14:59 100 Oxymask 6 01/11/25 13:40 97 Room Air 01/11/25 11:41 97 Room Air 01/11/25 08:13 97 Room Air 01/11/25 08:00 Room Air 01/11/25 04:18 98 Room Air 01/11/25 04:15 98 01/11/25 04:00 Room Air 01/11/25 04:00 01/11/25 03:57 96 Room Air 01/11/25 02:39 98 01/11/25 01:28 01/11/25 01:19 98 Room Air 01/11/25 01:06 99 Room Air Pain Intensity Abdomen: Pain Intensity: 4 Transfer of Care Handoff Completed per policy Notes Mental Status: alert / awake / arousable Patient Amnestic to Procedure: Yes Nausea / Vomiting: adequately controlled Pain: adequately controlled Airway Patency, RR, SpO2: stable & adequate BP & HR: stable & adequate Hydration State: stable & adequate Anesthetic Complications: no major complications apparent
--- NOTE | 2025-01-11 15:22 | Fluoroscopy Report ---
FL retrograde includes kub CLINICAL HISTORY: RT CYSTO COMPARISON STUDY: None FLUOROSCOPY TIME: 52 seconds FLUOROSCOPY IMAGES: 3 EXPOSURE DOSE: 10 mGy FINDINGS: Fluoroscopy was provided for urologic procedure. IMPRESSION: Intraoperative fluoroscopy. ACT 112: Negative or not required by law. Electronically signed by: Yandel Brunson M.D. 01/11/2025 3:20 PM
[2025-01-11 16:19] VITALS: TEMP 98.2
[2025-01-11 16:29] VITALS: O2SAT 95
[2025-01-11 16:55] VITALS: BP 142/71; PULSE 91; RESP 20
--- NOTE | 2025-01-11 16:56 | Discharge Summary ---
Discharge Summary Date of Service January 11, 2025 Principal Dx & Hospital Course #1 = Principal Diagnosis (1) Hydronephrosis with renal and ureteral calculous obstruction: (2) Asthma: Plan Patient is a 59-year-old female presented to the emergency room with acute onset of right sided back pain, nausea and vomiting. Evaluation in the emergency room was significant for obstructing right ureteral calculus. Patient was admitted to the hospital. Given IV fluids. Given pain control. Empirically placed on some antibiotics. Urology consultation was obtained. Patient was evaluated by urology and taken to the operating for cystoscopy with right retrograde pyelogram, ureteroscopic he, laser lithotripsy, stone extraction, ureteral dilatation and stent placement. Patient was seen post operatively. She was up and ambulatory. She had already passed urine. She was tolerating liquid diet. Her pain was well-controlled. Will continue to observe the patient postoperatively, advance her diet. If she does well anticipate should be discharged home with some pain medications, short course of oral antibiotics and follow-up with her PCP and follow-up with urology to coordinate stent removal. Patient's daughter at the bedside and agreeable with plan of care. Notes For Next Care Provider Continue to follow-up with urology Medication Changes From Visit Tamsulosin for management of stent irritability Cipro x 3 days Oxycodone as needed for pain Admission HPI Per Admitting Provider History obtained from patient and records. Medical history significant bronchial asthma, non-allergic rhinitis as per records, urolithiasis. Patient experienced achy RLQ pain associated with nausea, vomiting and watery diarrhea symptoms last night. Denies chest pain, SOB. Cough symptoms from allergies as per patient. No hematuria, no fever, no chills. No recent antibiotics/out-of-town travel. Not sure about sick contacts. Medical History as above Surgical History : section, BTL, laparoscopic hysterectomy, knee surgeries, bunionectomy, umbilical hernia repair Family History : DM, asthma, heart disease Personal/Social history : Non-smoker, no EtOH intake, [employer] employee Admission Exam Per Admitting Provider See H&P Discharge Exam Constitutional: Alert HEENT: Mucous membranes moist. Lungs: Clear to auscultation, decreased, no wheezes rales or rhonchi CV: S1-S2, regular Abdomen: Soft, nondistended, minimal tenderness, no guarding, no rigidity Extremities: No significant edema Neuro: No focal deficits Psych: Cooperative, normal mood Updated Medication List Medication Instructions Recorded Confirmed Type albuterol sulfate 90 mcg/actuation 2 puff inhalation QID PRN Wheezing 01/11/25 01/11/25 History aerosol inhaler azelastine 137 mcg (0.1 %) nasal 2 spray intranasal BID 01/11/25 01/11/25 History spray ciprofloxacin HCl 250 mg tablet 250 mg PO BID 3 days #6 tabs 01/11/25 Rx (Cipro) fluticasone furoate 27.5 1 spray intranasal BID PRN Nasal 01/11/25 01/11/25 History mcg/actuation nasal Congestion spray,suspension guaifenesin 600 mg tablet, 600 mg PO Q12H PRN Nasal Congestion 01/11/25 01/11/25 History extended release 12 hr oxycodone 5 mg tablet 2.5 - 5 mg (0.5 - 1 x 5 mg) PO Q6H 01/11/25 Rx moderate-severe pain #6 tabs pseudoephedrine-guaifenesin ER 120 1 tab PO Q12H PRN Nasal Congestion 01/11/25 01/11/25 History mg-1,200 mg tab,extend release 12hr (Mucinex D Maximum Strength) tamsulosin 0.4 mg capsule (Flomax) 0.4 mg PO HS #14 caps 01/11/25 Rx Hospital Stay Data Consultations 01/11/25 02:43 ED Decision to Admit Stat 01/11/25 04:27 Consult Urology Routine Procedures Performed Operation Date: 01/11/25 13:00 Actual Procedures p Cystoscopy, Retrograde Pyelogram, Ureteroscopy, Laser Lithotripsy, Basket Extraction of Stone, Stent Placement - Right(Right) - Fredy Michaud DO Diagnostic Imagining Performed 01/11/25 FL retrograde includes kub Routine 01/11/25 01:14 CT abd pelvis IV con only Stat Reviewed imaging, laboratory and diagnostic studies. Pertinent findings as below. WBCs 18.9 Hemoglobin 14.2 Platelets of 308 Electrolytes stable Creatinine 0.86 Hemoglobin A1c 5.6 LFTs within normal range Urinalysis trace leukocyte esterase, trace ketones, no bacteria seen Stone composition pathology pending Pending Results Patient Have Any Pending Studies at Discharge: Yes Discharge Instructions Given to Patient (Per Discharging Provider) He will complete a short course of antibiotics Follow-up with Dr. Michaud as coordinated through his office The tamsulosin will help with some of the stent discomfort May use [id number] acetaminophen and ibuprofen as needed for mild to moderate pain Total Time Total Time Spent Total Time Spent (In Minutes): 35
[2025-01-12] MEDS ORDERED: CIPROFLOXACIN / D5W 400 MG/200 ML BAG IV SCH (06:00)
== END 2025-01-11 18:09 | disposition home or self-care (01) ==
LOC: ED 01:00 → EDINP 02:53 → INTOOBSV 02:53 → 2N 04:27